=== PATIENT | female | born 1965 | race Two or more races ===

== ENCOUNTER 2018-02-02 23:11 | Emergency (ER) | payer MEDICAID, MEDICARE ==
[~2018-02-02] VITALS: Ht 154.9 cm; Wt 180.0 kg
[~2018-02-02 23:11] MED LIST: DULO-31 PO; GUAI120015 PO; HYDR-3972 PO; MELO-100 PO; ZIPR40CA2 PO
[2018-02-03 00:54] LABS: URINE HCG NEGATIVE (NEG)
[2018-02-03] MEDS ORDERED: normal saline 1000ML IV soln IVB ONE (01:10)
[2018-02-03] MEDS ORDERED: pantoprazole 40 MG vial IV ONE (01:10)
[2018-02-03] MEDS ORDERED: ondansetron/PF 4mg/2ml inj IV ONE (01:10)
[2018-02-03 01:31] LABS: CLARITY,URINE SLIGHTLY CLOUDY (Clear); COLOR,URINE YELLOW (Yellow); GLUCOSE, URINE NEGATIVE (Neg); KETONES,URINE NEGATIVE (Neg); LEUKOCYTE ESTERASE ,URINE NEGATIVE (Neg); NITRITES, URINE POSITIVE (Neg); OCCULT BLOOD,URINE TRACE-INTACT (Neg); PH,URINE 5.5 (4.8-8.0); PROTEIN,URINE TRACE mg/dl (Neg); UROBILINOGEN,URINE 0.2 E.U/dL (0.2-1.0)
[2018-02-03 01:33] LABS: UA COLLECTION TYPE CLN CATCH MIDSTREAM
[2018-02-03 01:41] LABS: BASOPHILS % (AUTO) 0.4 % (0-1); EOSINOPHILS # (AUTO) 0.3 X10'3 (0-0.9); HEMATOCRIT 40.1 % (35.0-45.0); HEMOGLOBIN 13.4 g/dl (12.0-16.0); LYMPHOCYTES # (AUTO) 1.8 X10'3 (1.1-4.8); LYMPHOCYTES % (AUTO) 21.9 % (21-51); MEAN CORPUSCULAR HEMOGLOBIN 29.3 PG (27.0-31.0); MEAN CORPUSCULAR HGB CONC 33.4 % (33.0-36.5); MEAN CORPUSCULAR VOLUME 87.7 FL (78-98); MEAN PLATELET VOLUME 7.3 FL (7.4-10.4); MONOCYTES # (AUTO) 0.4 X10'3 (0-0.9); MONOCYTES % (AUTO) 5.3 % (2-12); NEUTROPHILS # (AUTO) 5.9 X10'3 (1.8-7.7); NEUTROPHILS % (AUTO) 69.4 % (42-75); PLATELET COUNT 321 X10'3 (140-440); RED BLOOD COUNT 4.58 X10'6 (4.20-5.60); RED CELL DISTRIBUTION WIDTH 12.3 % (11.5-14.5); WHITE BLOOD COUNT 8.4 X10'3 (4.5-11.0)
[2018-02-03 01:48] LABS: BACTERIA,URINE 4+ /HPF (Neg); MUCUS STRANDS NONE SEEN /LPF (Neg); RBC,URINE 0-2 /HPF (0-2); SQUAMOUS EPITHELIAL CELL,UR MANY /LPF (FEW)
[2018-02-03 01:53] LABS: ALANINE AMINOTRANSFERASE 45 U/L (12-78); ALBUMIN 3.8 G/DL (3.4-5.0); ALKALINE PHOSPHATASE 96 IU/L (46-116); ANION GAP 9 (8-16); ASPARTATE AMINO TRANSFERASE 35 U/L (10-37); BILIRUBIN,TOTAL 0.3 MG/DL (0.1-1.0); BLOOD UREA NITROGEN 28 MG/DL (7-18); BUN/CREATININE RATIO 25.5 (6.6-38.0); CALCIUM 9.1 MG/DL (8.5-10.1); CHLORIDE 104 MMOL/L (99-107); GLUCOSE 96 MG/DL (70-104); LIPASE 81 U/L (73-393); SODIUM 142 MMOL/L (135-145); TOTAL CARBON DIOXIDE 29.5 MMOL/L (24-32); TOTAL PROTEIN 7.8 G/DL (6.4-8.2); eGFR 53 ML/MIN
[2018-02-03] MEDS ORDERED: magnesium oxide 400mg tablet PO ONE (01:55)
[2018-02-03] MEDS ORDERED: potassium Cl 20 mEq SR tablet PO ONE (01:55)
[2018-02-03] MEDS ORDERED: OMEP20CA10 PO (02:06)
[2018-02-03] MEDS ORDERED: FAMO20TA44 PO (02:06)
[2018-02-03] MEDS ORDERED: ONDA4TAB9 SL (02:06)
[2018-02-03] MEDS ORDERED: SUCR1ORA2 PO (02:06)
[2018-02-03] MEDS ORDERED: CEPH-572 PO (02:21)
[2018-02-03 02:39] VITALS: BP 149/103
== END 2018-02-03 02:42 | disposition home or self-care (01) ==
LOC: ER 23:11
DX: R10.9 Unspecified abdominal pain (principal); E87.6 Hypokalemia; K29.01 Acute gastritis with bleeding; E86.0 Dehydration; N28.9 Disorder of kidney and ureter, unspecified; K80.20 Calculus of gallbladder without cholecystitis without obstruction; N39.0 Urinary tract infection, site not specified; J45.909 Unspecified asthma, uncomplicated; G89.29 Other chronic pain; F12.10 Cannabis abuse, uncomplicated; F15.10 Other stimulant abuse, uncomplicated; Z56.0 Unemployment, unspecified; Z79.899 Other long term (current) drug therapy
CPT/HCPCS: 36415; 71045; 76700; 80053; 81001; 81025; 83690; 84484; 85025; 96361; 96374; 96375; 99285; C9113; J2405; J7030

== ENCOUNTER 2018-11-10 09:38 | Emergency (ER) | payer MEDICARE, MEDICAID ==
[~2018-11-10] VITALS: Ht 157.5 cm; Wt 79.5 kg
[~2018-11-10 09:38] MED LIST changes: +ARM1EACH; +CYCL-1 PO; +FAMO20TA44 PO; +OMEP20CA10 PO; +PANT-47 PO; +SUCR1ORA2 PO
[2018-11-10 10:06] VITALS: BP 158/100
--- NOTE | 2018-11-10 10:21 | NUR ---
AMB TO ER #11 WITH C/O LEFT FLANK PAIN, STARTED GRADUALLY SINCE CRAWLING UNDER PORCH ON SUNDAY. PAIN INCREASES WITH MOVEMENT, DEEP BREATH AND COUGH.
[2018-11-10] MEDS ORDERED: ketorolac trometh inj. 60 MG/2 ML VIAL IM ONE (10:40)
[2018-11-10] MEDS ORDERED: HYDROcodone/acetaminophen 5mg/325mg tablet PO ONE (10:40)
[2018-11-10] MEDS ORDERED: ACET-3067 PO (11:26)
== END 2018-11-10 11:39 | disposition home or self-care (01) ==
LOC: ER 09:39
DX: S20.212A Contusion of left front wall of thorax, initial encounter (principal); J45.909 Unspecified asthma, uncomplicated; G89.29 Other chronic pain; Z86.14 Personal history of Methicillin resistant Staphylococcus aureus infection; F12.90 Cannabis use, unspecified, uncomplicated; F15.90 Other stimulant use, unspecified, uncomplicated; Z88.8 Allergy status to other drugs, medicaments and biological substances; Z79.899 Other long term (current) drug therapy; Z56.0 Unemployment, unspecified; W10.8XXA Fall (on) (from) other stairs and steps, initial encounter; Y93.89 Activity, other specified; Y92.89 Other specified places as the place of occurrence of the external cause; Y99.8 Other external cause status
CPT/HCPCS: 71101; 96372; 99284; J1885

== ENCOUNTER 2019-05-05 08:41 | Emergency (ER) | payer MEDICARE, MEDICAID ==
[~2019-05-05] VITALS: Ht 154.9 cm; Wt 77.3 kg
[~2019-05-05 08:41] MED LIST changes: -OMEP20CA10 PO; +OMEP20CA11 PO
[2019-05-05] MEDS ORDERED: CYCL-1 PO (09:28)
[2019-05-05] MEDS ORDERED: IBUP-1984 PO (09:28)
[2019-05-05] MEDS ORDERED: ketorolac trometh inj. 60 MG/2 ML VIAL IM ONE (09:30)
[2019-05-05] MEDS ORDERED: ketorolac trometh. 30mg/ml inj. IM ONE (09:30)
[2019-05-05 09:57] VITALS: BP 124/74
== END 2019-05-05 09:59 | disposition home or self-care (01) ==
LOC: ER 08:42
DX: G89.29 Other chronic pain (principal); M54.5 Low back pain; J45.909 Unspecified asthma, uncomplicated; F41.9 Anxiety disorder, unspecified; F31.9 Bipolar disorder, unspecified; F12.90 Cannabis use, unspecified, uncomplicated; F17.200 Nicotine dependence, unspecified, uncomplicated; F15.90 Other stimulant use, unspecified, uncomplicated; Z59.0 Homelessness; Z86.14 Personal history of Methicillin resistant Staphylococcus aureus infection; Z56.0 Unemployment, unspecified; Z88.7 Allergy status to serum and vaccine; Z79.899 Other long term (current) drug therapy
CPT/HCPCS: 96372; 99283

== ENCOUNTER 2019-07-02 11:14 | Emergency (ER) | payer MEDICARE, MEDICAID ==
[~2019-07-02] VITALS: Ht 154.9 cm; Wt 81.8 kg
[2019-07-02] MEDS ORDERED: ibuprofen tablet 400 MG TABLET PO ONE (13:15)
[2019-07-02] MEDS ORDERED: IBUP-1984 PO (13:24)
[2019-07-02 14:12] VITALS: BP 166/114
== END 2019-07-02 14:14 | disposition home or self-care (01) ==
LOC: ER 11:14
DX: M79.672 Pain in left foot (principal); M25.572 Pain in left ankle and joints of left foot; J45.909 Unspecified asthma, uncomplicated; G89.29 Other chronic pain; F41.9 Anxiety disorder, unspecified; F31.9 Bipolar disorder, unspecified; F12.90 Cannabis use, unspecified, uncomplicated; F15.90 Other stimulant use, unspecified, uncomplicated; Z88.7 Allergy status to serum and vaccine; Z79.899 Other long term (current) drug therapy; Z79.1 Long term (current) use of non-steroidal anti-inflammatories (NSAID); Z86.14 Personal history of Methicillin resistant Staphylococcus aureus infection; Z56.0 Unemployment, unspecified; Z59.0 Homelessness; X58.XXXA Exposure to other specified factors, initial encounter; Y93.89 Activity, other specified; Y92.89 Other specified places as the place of occurrence of the external cause; Y99.8 Other external cause status
CPT/HCPCS: 73610; 73630; 99283

== ENCOUNTER 2019-07-22 08:03 | Emergency (ER) | payer MEDICARE, MEDICAID ==
[~2019-07-22] VITALS: Ht 154.9 cm; Wt 83.0 kg
[2019-07-22] MEDS ORDERED: rabies immune globulin/PF 150 unit/ml inj IMVAC STA (08:27)
[2019-07-22] MEDS ORDERED: LIDOcaine 1% w/EPI 1:200,000 injection 10mL vial IM ONE (08:30)
[2019-07-22] MEDS ORDERED: rabies vaccine (PCEC)/PF 2.5 unit kit IMVAC ONE (08:30)
[2019-07-22] MEDS ORDERED: LORazepam 1 MG tablet PO ONE (08:30)
[2019-07-22] MEDS ORDERED: LIDOcaine 1% W/epiNEPHrine 1:200,000 10ml vial IJ ONE (08:40)
[2019-07-22] MEDS ORDERED: AMOX-422 PO (08:49)
[2019-07-22] MEDS ORDERED: ibuprofen tablet 400 MG TABLET PO ONE (08:50)
[2019-07-22] MEDS ORDERED: ibuprofen 200mg tablet PO ONE (08:55)
[2019-07-22 11:09] VITALS: BP 150/109
== END 2019-07-22 11:14 | disposition home or self-care (01) ==
LOC: ER 08:03
DX: S51.811A Laceration without foreign body of right forearm, initial encounter (principal); S51.832A Puncture wound without foreign body of left forearm, initial encounter; J45.909 Unspecified asthma, uncomplicated; G89.29 Other chronic pain; F41.9 Anxiety disorder, unspecified; F31.9 Bipolar disorder, unspecified; F12.90 Cannabis use, unspecified, uncomplicated; F15.90 Other stimulant use, unspecified, uncomplicated; Z86.14 Personal history of Methicillin resistant Staphylococcus aureus infection; Z56.0 Unemployment, unspecified; Z59.0 Homelessness; Z98.890 Other specified postprocedural states; Z88.7 Allergy status to serum and vaccine; Z79.899 Other long term (current) drug therapy; W54.0XXA Bitten by dog, initial encounter; Y93.89 Activity, other specified; Y92.89 Other specified places as the place of occurrence of the external cause; Y99.8 Other external cause status
CPT/HCPCS: 12001; 73090; 90375; 90471; 90675; 96372; 99283

== ENCOUNTER 2020-11-03 13:52 | Emergency (ER) | payer MEDICAID, MEDICARE, OTHER ==
[~2020-11-03] VITALS: Ht 154.9 cm; Wt 82.4 kg
[~2020-11-03 13:52] MED LIST changes: -OMEP20CA11 PO; +OMEP20CA15 PO
[2020-11-03 14:22] VITALS: BP 174/116
--- NOTE | 2020-11-03 15:04 | NUR ---
Spoke with [facility] office dispatch regarding possible SART case. Case #[id number]
--- NOTE | 2020-11-03 15:07 | NUR ---
Contacted [facility] regarding patients status spoke with ave andrea who stated that she would get someone to response as soon as possible.
--- NOTE | 2020-11-03 16:10 | NUR ---
Officer Jakub Francisco #[id number] authorized MIKE. Will contact MIKE MAYNARD for procedure. Dispatch number [phone]
--- NOTE | 2020-11-03 16:38 | NUR ---
[facility] rep, Jabier, arrived and is in room with patient.
--- NOTE | 2020-11-03 19:03 | NUR ---
pt brought back to sart room occompanied by [facility] advocate
[2020-11-03] MEDS ORDERED: azithromycin 250mg tablet PO ONE (19:05)
[2020-11-03] MEDS ORDERED: CefTRIAXone 250MG IM Kit w/LIDOcaine IM ONE (19:05)
[2020-11-03] MEDS ORDERED: metroNIDAZOLE 500mg tablet PO ONE (19:05)
[2020-11-03] MEDS ORDERED: fluconazole 150mg tablet PO ONE (20:25)
--- NOTE | 2020-11-03 20:54 | NUR ---
pt discharged at 2030, pt offered shower and refused. pt given sti prophylaxis and sart discarge instructions. [facility] called for follow up.
== END 2020-11-03 22:42 | disposition home or self-care (01) ==
LOC: EEVIPCON 13:53 → ER 13:53
DX: N76.0 Acute vaginitis (principal); J45.909 Unspecified asthma, uncomplicated; G89.29 Other chronic pain; F41.9 Anxiety disorder, unspecified; F31.9 Bipolar disorder, unspecified; F12.90 Cannabis use, unspecified, uncomplicated; F15.90 Other stimulant use, unspecified, uncomplicated; Z04.41 Encounter for examination and observation following alleged adult rape; Z86.14 Personal history of Methicillin resistant Staphylococcus aureus infection; Z98.890 Other specified postprocedural states; Z59.0 Homelessness; Z56.0 Unemployment, unspecified; Z88.7 Allergy status to serum and vaccine; Z79.899 Other long term (current) drug therapy
CPT/HCPCS: 96372; 99284; J0696; J3490

== ENCOUNTER 2023-02-07 21:20 | Emergency (ER) | payer MEDICAID, OTHER ==
[~2023-02-07] VITALS: Ht 154.9 cm; Wt 80.0 kg
[2023-02-07 22:12] LABS: BASOPHILS # (AUTO) 0.1 X10'3 (0-0.2); BASOPHILS % (AUTO) 0.9 % (0-1); EOSINOPHILS # (AUTO) 0.4 X10'3 (0-0.9); EOSINOPHILS % (AUTO) 4.1 % (0-6); HEMATOCRIT 37.4 % (35.0-45.0); HEMOGLOBIN 12.5 g/dl (12.0-16.0); LYMPHOCYTES # (AUTO) 2.7 X10'3 (1.1-4.8); LYMPHOCYTES % (AUTO) 28.1 % (21-51); MEAN CORPUSCULAR HEMOGLOBIN 30.7 PG (27.0-31.0); MEAN CORPUSCULAR HGB CONC 33.3 g/dL (33.0-36.5); MEAN CORPUSCULAR VOLUME 92.2 FL (78-98); MEAN PLATELET VOLUME 7.3 FL (7.4-10.4); MONOCYTES # (AUTO) 0.7 X10'3 (0-0.9); MONOCYTES % (AUTO) 7.6 % (2-12); NEUTROPHILS # (AUTO) 5.7 X10'3 (1.8-7.7); NEUTROPHILS % (AUTO) 59.3 % (42-75); PLATELET COUNT 367 X10'3 (140-440); RED BLOOD COUNT 4.06 X10'6 (4.20-5.60); RED CELL DISTRIBUTION WIDTH 13.4 % (11.5-14.5); WHITE BLOOD COUNT 9.6 X10'3 (4.5-11.0)
[2023-02-07 22:22] LABS: ALANINE AMINOTRANSFERASE 24 U/L (12-78); ALBUMIN 3.8 G/DL (3.4-5.0); ALBUMIN/GLOBULIN RATIO 1.2 (1.1-1.5); ALKALINE PHOSPHATASE 99 IU/L (46-116); ANION GAP 10 (8-16); ASPARTATE AMINO TRANSFERASE 20 U/L (10-37); BILIRUBIN,TOTAL 0.1 MG/DL (0.1-1.0); BLOOD UREA NITROGEN 24 MG/DL (7-18); BUN/CREATININE RATIO 15.9 (10.0-20.0); CALCIUM 8.6 MG/DL (8.5-10.1); CHLORIDE 100 MMOL/L (99-107); CREATININE 1.51 MG/DL (0.40-0.90); GLUCOSE 118 MG/DL (70-104); POTASSIUM 3.1 MMOL/L (3.5-5.1); SODIUM 137 MMOL/L (135-145); TOTAL CARBON DIOXIDE 26.9 MMOL/L (24-32); TOTAL PROTEIN 7.1 G/DL (6.4-8.2); eGFR 36 ML/MIN
[2023-02-07 22:32] LABS: ETHANOL < 0.010 GM/DL (0.0-0.010)
[2023-02-08 08:36] LABS: URINE HCG NEGATIVE (NEG)
[2023-02-08 08:41] LABS: CLARITY,URINE SLIGHTLY CLOUDY (Clear); COLOR,URINE YELLOW (Yellow); GLUCOSE, URINE NEGATIVE (Neg); KETONES,URINE NEGATIVE (Neg); LEUKOCYTE ESTERASE ,URINE SMALL (Neg); NITRITES, URINE POSITIVE (Neg); OCCULT BLOOD,URINE TRACE-INTACT (Neg); PROTEIN,URINE NEGATIVE (Neg); UROBILINOGEN,URINE 0.2 E.U/dL (0.2-1.0)
[2023-02-08 08:53] LABS: UA COLLECTION TYPE CLN CATCH MIDSTREAM
[2023-02-08 08:54] LABS: BACTERIA,URINE 4+ /HPF (Neg); MUCUS STRANDS NONE SEEN /LPF (Neg); SQUAMOUS EPITHELIAL CELL,UR FEW /LPF (FEW); WBC CLUMPS,URINE FEW /HPF (NEGATIVE)
[2023-02-08 11:39] LABS: URINE AMPHETAMINE SCREEN POSITIVE (Neg); URINE BARBITUATE SCREEN NEGATIVE (Neg); URINE BENZODIAZEPINES SCREEN NEGATIVE (Neg); URINE CANNABINOID SCREEN POSITIVE (Neg); URINE COCAINE SCREEN NEGATIVE (Neg); URINE METHADONE SCREEN NEGATIVE (Neg); URINE OPIATE SCREEN POSITIVE (Neg); URINE PHENCYCLIDINE SCREEN NEGATIVE (Neg)
[2023-02-08] MEDS ORDERED: LISI1TAB51 PO (12:02)
[2023-02-08] MEDS ORDERED: VENL150C58 PO (12:05)
[2023-02-08] MEDS ORDERED: MELO-100 PO (12:05)
[2023-02-08] MEDS ORDERED: hydrOXYzine 25 MG tablet PO PRN (16:25)
[2023-02-08] MEDS ORDERED: NICOTINE POLACRILEX 2 MG LOZENGE BC PRN (16:25)
--- NOTE | 2023-02-08 16:30 | NUR ---
Pt. brought over from ER, arrived c/o anxiety, ambulates without issue.
--- NOTE | 2023-02-08 16:56 | NUR ---
Pt. c/o "feeling very nervous" pt. also has sx of paranoia; PRN Atarax administered.
--- NOTE | 2023-02-08 17:18 | NUR ---
Pt. endorses HI, reporting wanting to harm her "parents and another person" Pt. reports HI for over a month.
--- NOTE | 2023-02-08 18:15 | NUR ---
Spoke to provider in the ER re Potassium level 3.1; no orders recieved.
[2023-02-08] MEDS ORDERED: potassium Cl 20 mEq SR tablet PO STA (18:36)
--- NOTE | 2023-02-08 19:13 | NUR ---
Daughter called asking for information on patient, paient was asked and stated she didnt want her daughter to have any information. Message was relaid to daughter who became very upset that mother was made aware of her being on the phone. Daughter then hung up on nurse.
--- NOTE | 2023-02-08 19:14 | NUR ---
Nurse to nurse report was given to [facility] jericho regarging potential transfer of patient.
--- NOTE | 2023-02-08 19:50 | NUR ---
Patient is accepted to [facility] in [facility] will pick this patient up at [address] Earl.
--- NOTE | 2023-02-08 21:10 | NUR ---
Discharge Note: Patient left unit at 2109. Patient was escorted out by security and [employer] owner operator tanker truck driver. Patient was given belonings and purse which security carried out. Patient will stop by security to get back contraband and jewerly before leaving.
[2023-02-08 21:14] VITALS: BP 155/96
[2023-02-09] MEDS ORDERED: MELOXICAM 7.5 MG TABLET PO SCH (08:00)
[2023-02-09] MEDS ORDERED: nicotine 21mg patch - 24 hr TD SCH (08:00)
[2023-02-09] MEDS ORDERED: HYDROchlorothiazide 12.5mg capsule PO SCH (08:00)
[2023-02-09] MEDS ORDERED: venlafaxine XR 75mg capsule (Q24H) PO SCH (08:00)
[2023-02-09] MEDS ORDERED: lisinopril 20mg tablet PO SCH (08:00)
== END 2023-02-08 21:22 ==
LOC: ER 21:21
DX: R45.850 Homicidal ideations (principal); Z20.822 Contact with and (suspected) exposure to COVID-19; F15.10 Other stimulant abuse, uncomplicated; J45.909 Unspecified asthma, uncomplicated; G89.29 Other chronic pain; F41.9 Anxiety disorder, unspecified; F31.9 Bipolar disorder, unspecified; F12.90 Cannabis use, unspecified, uncomplicated; Z86.14 Personal history of Methicillin resistant Staphylococcus aureus infection; Z56.0 Unemployment, unspecified; Z88.7 Allergy status to serum and vaccine; Z79.899 Other long term (current) drug therapy
CPT/HCPCS: 36415; 80053; 80305; 80320; 81001; 81025; 84443; 85025; 87088; 87811; 99285; Q0177; 87186

== ENCOUNTER 2023-05-24 09:46 | Emergency (ER) | payer MEDICAID ==
[~2023-05-24] VITALS: Ht 154.9 cm; Wt 80.9 kg
[~2023-05-24 09:46] MED LIST changes: -ARM1EACH; -CYCL-1 PO; -DULO-31 PO; -FAMO20TA44 PO; -GUAI120015 PO; -HYDR-3972 PO; +LISI1TAB51 PO; -OMEP20CA15 PO; -PANT-47 PO; -SUCR1ORA2 PO; +VENL150C58 PO; -ZIPR40CA2 PO
[2023-05-24 10:03] VITALS: BP 113/64; PULSE 67; RESP 18; TEMP 98.5; O2SAT 95
== END 2023-05-24 12:24 | disposition home or self-care (01) ==
LOC: ER 09:46
DX: F15.10 Other stimulant abuse, uncomplicated (principal); J45.909 Unspecified asthma, uncomplicated; F31.9 Bipolar disorder, unspecified; F12.90 Cannabis use, unspecified, uncomplicated; Z88.7 Allergy status to serum and vaccine; Z79.2 Long term (current) use of antibiotics; Z79.899 Other long term (current) drug therapy
CPT/HCPCS: 71045; 99283

== ENCOUNTER 2023-09-16 09:39 | Inpatient (IN) | payer MEDICAID ==
[~2023-09-16] VITALS: Ht 154.9 cm; Wt 85.2 kg
[2023-09-16] MEDS ORDERED: ipratropium/albuterol 3ml nebule NEB PRN (10:05)
[2023-09-16 10:18] LABS: ABG BASE EXCESS 5.4 mmol/L (-2.0-2.0); ABG HCO3 29.8 mmol/L (22.0-26.0); ABG OXYGEN SATURATION 90.3 % (94-97); ABG PCO2 (T) 42.5 mmHg (32.0-45.0); ABG PH (T) 7.463 (7.350-7.450); ABG PO2 (T) 56.3 mmHg (75.0-100.0); ALLEN'S TEST POSITIVE; FCOHb 0.4 % (0.0-3.9); FHHb 9.6 % (0.0-5.0); FLOW 6 L/min; FMetHb 0.3 % (0.0-1.5); FO2Hb 89.7 % (94-97); PATIENT TEMPERATURE 36.8; TOTAL HEMOGLOBIN 13.8 G/dl (12.0-16.0)
[2023-09-16 10:28] VITALS: PULSE 108
[2023-09-16 11:04] LABS: BASOPHILS % (AUTO) 0.5 % (0-1); EOSINOPHILS % (AUTO) 0.2 % (0-6); HEMATOCRIT 40.3 % (35.0-45.0); HEMOGLOBIN 13.1 g/dl (12.0-16.0); LYMPHOCYTES # (AUTO) 1.1 X10'3 (1.1-4.8); LYMPHOCYTES % (AUTO) 22.2 % (21-51); MEAN CORPUSCULAR HEMOGLOBIN 28.8 PG (27.0-31.0); MEAN CORPUSCULAR HGB CONC 32.6 g/dL (33.0-36.5); MEAN CORPUSCULAR VOLUME 88.4 FL (78-98); MEAN PLATELET VOLUME 7.9 FL (7.4-10.4); MONOCYTES # (AUTO) 0.5 X10'3 (0-0.9); MONOCYTES % (AUTO) 10.3 % (2-12); NEUTROPHILS # (AUTO) 3.2 X10'3 (1.8-7.7); NEUTROPHILS % (AUTO) 66.8 % (42-75); PLATELET COUNT 229 X10'3 (140-440); RED BLOOD COUNT 4.56 X10'6 (4.20-5.60); RED CELL DISTRIBUTION WIDTH 15.1 % (11.5-14.5); WHITE BLOOD COUNT 4.8 X10'3 (4.5-11.0)
[2023-09-16 11:12] LABS: APTT 34 SECONDS (22-32); PROTHROMBIN TIME 10.8 SECONDS (9.0-12.0)
[2023-09-16 11:25] LABS: ALANINE AMINOTRANSFERASE 26 U/L (12-78); ALBUMIN 3.5 G/DL (3.4-5.0); ALBUMIN/GLOBULIN RATIO 0.9 (1.1-1.5); ALKALINE PHOSPHATASE 74 IU/L (46-116); ANION GAP 9 (8-16); ASPARTATE AMINO TRANSFERASE 39 U/L (10-37); BILIRUBIN,TOTAL 0.4 MG/DL (0.1-1.0); BLOOD UREA NITROGEN 7 MG/DL (7-18); BUN/CREATININE RATIO 7.1 (10.0-20.0); CALCIUM 8.7 MG/DL (8.5-10.1); CHLORIDE 92 MMOL/L (99-107); CREATININE 0.99 MG/DL (0.40-0.90); GLUCOSE 119 MG/DL (70-104); PRO BRAIN NATRIURETIC PEPTIDE 1461 PG/ML (0-125); SODIUM 132 MMOL/L (135-145); TOTAL CARBON DIOXIDE 31.2 MMOL/L (24-32); TOTAL PROTEIN 7.6 G/DL (6.4-8.2); eCRCL 52 ML/MIN; eGFR 58 ML/MIN
[2023-09-16 11:28] LABS: POTASSIUM 2.9 MMOL/L (3.5-5.1)
[2023-09-16] MEDS ORDERED: acetaminophen 325mg tablet PO ONE (12:05)
[2023-09-16] MEDS ORDERED: potassium Cl 20 mEq SR tablet PO STA (12:07)
[2023-09-16] MEDS ORDERED: dexamethasone inj 6 MG in dextrose 5%-water 100 ML IV STA (12:20)
[2023-09-16] MEDS ORDERED: dexamethasone inj 6 MG in normal saline 50ml IV soln 50 ML IV STA (12:31)
[2023-09-16 12:47] LABS: MAGNESIUM 2.4 MG/DL (1.5-2.4)
[2023-09-16] MEDS ORDERED: potassium Cl 40MEQ/1/2NS 520ml 520 ML IV PRN (12:55)
[2023-09-16] MEDS ORDERED: ondansetron/PF 4mg/2ml inj IV PRN (12:55)
[2023-09-16] MEDS ORDERED: magnesium 4gm in 100ml NS 100 ML IV PRN (12:55)
[2023-09-16] MEDS ORDERED: mag hydrox/Alum hydrox/simeth 30ml oral suspension PO PRN (12:55)
[2023-09-16] MEDS ORDERED: magnesium 2GM in 50ml NS 50 ML IV PRN (12:55)
[2023-09-16] MEDS ORDERED: REMDESIVIR INJ 200 MG in normal saline 100ml IV soln 100 ML IV ONE (12:55)
[2023-09-16] MEDS ORDERED: albuterol 2.5 MG/3 ML nebule NEB PRN ×2 (12:55)
[2023-09-16] MEDS ORDERED: potassium Cl 20 mEq SR tablet PO PRN (12:55)
[2023-09-16] MEDS ORDERED: acetaminophen 325mg tablet PO PRN (12:55)
[2023-09-16] MEDS ORDERED: magnesium hydroxide 30ml (MOM) UD suspension PO PRN (12:55)
[2023-09-16] MEDS ORDERED: PERFLUTREN PROTEIN-A MICROSPHR (Optison) 0.22 MG/ML 3ML VIAL IV ONE (12:55)
[2023-09-16 13:19] LABS: D-DIMER 0.53 MG/L FEU (0-0.50)
[2023-09-16 13:56] LABS: C-REACTIVE PROTEIN 2.97 MG/DL (0.0-0.5)
[2023-09-16 13:59] LABS: BILIRUBIN,URINE SMALL (Neg); CLARITY,URINE CLOUDY (Clear); COLOR,URINE YELLOW (Yellow); GLUCOSE, URINE NEGATIVE (Neg); KETONES,URINE 15 mg/dl (Neg); LEUKOCYTE ESTERASE ,URINE NEGATIVE (Neg); NITRITES, URINE NEGATIVE (Neg); OCCULT BLOOD,URINE NEGATIVE (Neg); PROTEIN,URINE 100 mg/dl (Neg); UROBILINOGEN,URINE 0.2 E.U/dL (0.2-1.0)
[2023-09-16 14:00] LABS: UA COLLECTION TYPE CLN CATCH MIDSTREAM
[2023-09-16 14:06] LABS: BACTERIA,URINE 1+ /HPF (Neg); MUCUS STRANDS NONE SEEN /LPF (Neg); RBC,URINE 0-2 /HPF (0-2); SQUAMOUS EPITHELIAL CELL,UR FEW /LPF (FEW); TRANSITIONAL EPI CELLS,URINE FEW /HPF; TRIPLE PHOSPHATE CRYST 3+ /HPF (NEGATIVE); WBC,URINE 0-4 /HPF (0-4)
[2023-09-16] MEDS: normal saline 1000ml 1,000 ML IV SCH ×2 (15:00→22:55)
[2023-09-16 15:30] VITALS: BP 130/80; PULSE 73; RESP 20; TEMP 97.9; O2SAT 93
[2023-09-16 18:00] VITALS: BP 160/96; PULSE 90; RESP 20; TEMP 98.4; O2SAT 90
[2023-09-16] MEDS ORDERED: albuterol 60 PUFF/8GM Inhaler (90mcg/1 puff) IH PRN ×2 (18:46→18:47)
[2023-09-16 20:00] VITALS: RESP 18; RESP 20; O2SAT 90
[2023-09-16] MEDS: docusate sod 100mg capsule PO SCH (20:00)
[2023-09-16] MEDS ORDERED: enoxaparin 40mg/0.4ml syringe SQ SCH (20:00)
[2023-09-16] MEDS: K and/or MAG REPLACEMENT MC SCH (20:00)
[2023-09-16] MEDS: potassium Cl 20 mEq SR tablet PO PRN (20:09)
[2023-09-16 21:17] VITALS: PULSE 68; RESP 18; O2SAT 97
[2023-09-16] MEDS ORDERED: GABA600T13 PO (21:56)
[2023-09-16] MEDS ORDERED: SUMA100T16 PO (21:56)
[2023-09-16 22:00] VITALS: BP 162/103; PULSE 93; RESP 20; TEMP 98.9; O2SAT 96
[2023-09-17] MEDS ORDERED: morphine 2 MG/ML inj. syringe IV PRN
[2023-09-17] MEDS ORDERED: morphine 4 MG/ML inj SYRINge IV PRN
[2023-09-17] MEDS: potassium Cl 20 mEq SR tablet PO PRN (03:37)
[2023-09-17 06:36] VITALS: PULSE 101; PULSE 81; RESP 16; O2SAT 94; O2SAT 98
[2023-09-17 06:53] LABS: BASOPHILS % (AUTO) 0.2 % (0-1); EOSINOPHILS % (AUTO) 0.1 % (0-6); HEMATOCRIT 42.2 % (35.0-45.0); HEMOGLOBIN 13.9 g/dl (12.0-16.0); LYMPHOCYTES # (AUTO) 1.5 X10'3 (1.1-4.8); LYMPHOCYTES % (AUTO) 39.5 % (21-51); MEAN CORPUSCULAR HEMOGLOBIN 29.4 PG (27.0-31.0); MEAN CORPUSCULAR HGB CONC 32.9 g/dL (33.0-36.5); MEAN CORPUSCULAR VOLUME 89.2 FL (78-98); MEAN PLATELET VOLUME 7.9 FL (7.4-10.4); MONOCYTES % (AUTO) 26.7 % (2-12); NEUTROPHILS # (AUTO) 1.3 X10'3 (1.8-7.7); NEUTROPHILS % (AUTO) 33.5 % (42-75); PLATELET COUNT 248 X10'3 (140-440); RED BLOOD COUNT 4.73 X10'6 (4.20-5.60); WHITE BLOOD COUNT 3.8 X10'3 (4.5-11.0)
[2023-09-17 07:26] LABS: ALANINE AMINOTRANSFERASE 21 U/L (12-78); ALBUMIN 3.4 G/DL (3.4-5.0); ALBUMIN/GLOBULIN RATIO 0.8 (1.1-1.5); ALKALINE PHOSPHATASE 69 IU/L (46-116); ANION GAP 12 (8-16); ASPARTATE AMINO TRANSFERASE 34 U/L (10-37); BILIRUBIN,TOTAL 0.3 MG/DL (0.1-1.0); BLOOD UREA NITROGEN 13 MG/DL (7-18); BUN/CREATININE RATIO 13.7 (10.0-20.0); C-REACTIVE PROTEIN 2.43 MG/DL (0.0-0.5); CALCIUM 9.1 MG/DL (8.5-10.1); CHLORIDE 95 MMOL/L (99-107); CREATININE 0.95 MG/DL (0.40-0.90); GLUCOSE 90 MG/DL (70-104); MAGNESIUM 2.4 MG/DL (1.5-2.4); POTASSIUM 4.1 MMOL/L (3.5-5.1); SODIUM 134 MMOL/L (135-145); TOTAL PROTEIN 7.8 G/DL (6.4-8.2); eCRCL 50 ML/MIN; eGFR 61 ML/MIN
[2023-09-17 07:30] VITALS: BP 142/111; PULSE 82; RESP 18; TEMP 97.9; O2SAT 95
[2023-09-17 08:00] VITALS: RESP 18
[2023-09-17] MEDS: K and/or MAG REPLACEMENT MC SCH (08:00)
[2023-09-17] MEDS ORDERED: dexamethasone inj 6 MG in normal saline 50ml IV soln 50 ML IV SCH (08:00)
[2023-09-17] MEDS ORDERED: REMDESIVIR INJ 100 MG in normal saline 100ml IV soln 100 ML IV SCH (08:00)
[2023-09-17] MEDS: docusate sod 100mg capsule PO SCH ×2 (08:00→08:15)
[2023-09-17 08:01] LABS: ANISOCYTOSIS FEW; BURR CELLS 1+; PLATELET ESTIMATE NORMAL; TOTAL CELLS COUNTED 100
[2023-09-17 08:02] LABS: LARGE PLATELETS FEW
[2023-09-17 08:15] VITALS: RESP 18
[2023-09-17] MEDS: normal saline 1000ml 1,000 ML IV SCH (08:55)
[2023-09-17] MEDS ORDERED: PRED20TA PO (12:23)
[2023-09-17] MEDS ORDERED: POTA-206 PO (12:26)
[2023-09-17] MEDS ORDERED: ASPI81TA52 PO (13:27)
== END 2023-09-17 15:40 | disposition home or self-care (01) | DRG 137 ==
LOC: ER 09:39 → ED HOLD 13:05 → PCU 3S 15:05
PROVIDERS: ADMIT Family Medicine; ATTEND Family Medicine
PROC: XW033E5 Introduction of Remdesivir Anti-infective into Peripheral Vein, Percutaneous Approach, New Technology Group 5 (ICD-10-PCS; principal; 2023-09-17)
DX: U07.1 COVID-19 (principal); J96.01 Acute respiratory failure with hypoxia; J12.82 Pneumonia due to coronavirus disease 2019; F17.210 Nicotine dependence, cigarettes, uncomplicated; F31.9 Bipolar disorder, unspecified; E87.6 Hypokalemia; F15.90 Other stimulant use, unspecified, uncomplicated; F41.9 Anxiety disorder, unspecified; J44.1 Chronic obstructive pulmonary disease with (acute) exacerbation; R79.89 Other specified abnormal findings of blood chemistry; M54.9 Dorsalgia, unspecified; B95.62 Methicillin resistant Staphylococcus aureus infection as the cause of diseases classified elsewhere; F12.90 Cannabis use, unspecified, uncomplicated; R65.10 Systemic inflammatory response syndrome (SIRS) of non-infectious origin without acute organ dysfunction; Z79.82 Long term (current) use of aspirin; Z80.9 Family history of malignant neoplasm, unspecified; Z56.0 Unemployment, unspecified
CPT/HCPCS: 36415; 36600; 71045; 80053; 81001; 82803; 83605; 83735; 83880; 84132; 84145; 84484; 85007; 85018; 85025; 85379; 85610; 85730; 86140; 87040; 87502; 87503; 87811; 93306; 94760; 96365; 96368; 99291; A4615; G0378; J1100; J1650; J2270; J2405; J3490; J7030